=== PATIENT | female | born 1985 | race Caucasian/White ===

== ENCOUNTER 2016-12-06 11:06 | Emergency (ER) | payer OTHER ==
[2016-12-06 11:36] VITALS: BP 123/78
--- NOTE | 2016-12-06 12:01 | UC ---
Dental HPI - HPI Summary HPI Summary: dental pain x 1 week pain and swelling, of left lower molar no fever, no chills, pain with chewing - History of Current Complaint Chief Complaint: UCDentalProblem Stated Complaint: DENTAL ABSCESS Time Seen by Provider: 12/06/16 11:48 Hx Obtained From: Patient Hx Last Menstrual Period: 11/29/16 Onset/Duration: Gradual Onset, Lasting Days - 7, Still Present Severity: Severe Aggravating: Heat, Cold, Chewing Alleviating: Nothing Dental: 1 - brocken molar, + erythem , swelling, tenderness - Allergies/Home Medications Allergies/Adverse Reactions: Allergies Allergy/AdvReac Type Severity Reaction Status Date / Time Codeine AdvReac Abdominal Verified 12/06/16 11:30 Pain Home Medications: Home Medications Amoxicillin CAP* [Amoxicillin 500 MG CAP*] 500 mg PO SEE INSTRUCTIONS 12/06/16 [ History Confirmed 12/06/16] Ibuprofen TAB* [Advil TAB*] 800 mg PO Q6H PRN 12/06/16 [History Confirmed ] PMH/Surg Hx/FS Hx/Imm Hx Previously Healthy: Yes - Surgical History Surgical History: Yes Surgery Procedure, Year, and Place: D&C, 2016; Cholecystectomy, ~2006, [place] - Family History Known Family History: Positive: Diabetes Negative: Cardiac Disease, Hypertension - Social History Alcohol Use: Rare Substance Use Type: None Smoking Status (MU): Light Every Day Tobacco Smoker Type: Cigarettes Amount Used/How Often: <1/2 PPD Length of Time of Smoking/Using Tobacco: Since Age 15 Have You Smoked in the Last Year: Yes - Immunization History Most Recent Influenza Vaccination: August 2016 Review of Systems Constitutional: Negative Skin: Negative Eyes: Negative ENT: Dental Pain Respiratory: Negative Cardiovascular: Negative All Other Systems Reviewed And Are Negative: Yes Physical Exam Triage Information Reviewed: Yes Appearance: Well-Appearing, No Pain Distress, Well-Nourished Vital Signs: Initial Vital Signs Temp 98.4 F 12/06/16 11:28 Pulse 82 12/06/16 11:28 Resp 16 12/06/16 11:28 BP 123/78 12/06/16 11:28 Pulse Ox 98 12/06/16 11:28 Vital Signs Reviewed: Yes Eyes: Positive: Conjunctiva Clear ENT: Positive: Normal ENT inspection, Hearing grossly normal, Pharynx normal, TMs normal Dental: Positive: Percussion Tenderness @ - 17,18,19,, Gross Decay/Caries @ - 17 ,18,19,, Dental Fracture @ - 17,18,19,, Cellulitis @ - 17,18,19, Respiratory: Positive: Chest non-tender, Lungs clear, Normal breath sounds Cardiovascular: Positive: RRR, No Murmur, Pulses Normal Abdomen Description: Positive: Nontender, No Organomegaly, Soft Dental Complaint Course/Dx - Differential Dx/Diagnosis Provider Diagnoses: dental pain Discharge - Discharge Plan Condition: Stable Disposition: HOME Prescriptions: Amoxicillin (*) [Amoxicillin 875 MG (*)] 875 mg PO BID #20 tab Patient Education Materials: Toothache (ED) Referrals: Shannon Raya MD [Primary Care Provider] - 7 Days Additional Instructions: follow up with your dentist
== END 2016-12-06 12:02 | disposition home or self-care (01) ==
LOC: UCCORT 11:06
DX: K08.89 Other specified disorders of teeth and supporting structures (principal); F17.210 Nicotine dependence, cigarettes, uncomplicated
CPT/HCPCS: 99212; G0463

== ENCOUNTER 2017-01-13 16:22 | Emergency (ER) | payer OTHER ==
[2017-01-13 16:42] VITALS: BP 133/81
--- NOTE | 2017-01-13 16:51 | UC ---
UC Dental HPI - HPI Summary HPI Summary: 31 year old female presents with complains of right lower molar abscess. - History of Current Complaint Chief Complaint: UCDentalProblem Stated Complaint: DENTAL Time Seen by Provider: 01/13/17 16:46 Hx Last Menstrual Period: 12/23/16 - Allergies/Home Medications Allergies/Adverse Reactions: Allergies Allergy/AdvReac Type Severity Reaction Status Date / Time Codeine AdvReac Abdominal Verified 01/13/17 16:42 Pain PMH/Surg Hx/FS Hx/Imm Hx - Surgical History Surgical History: Yes Surgery Procedure, Year, and Place: D&C, 2016; Cholecystectomy, ~2006, [place] - Family History Known Family History: Positive: Diabetes Negative: Cardiac Disease, Hypertension - Social History Alcohol Use: Rare Substance Use Type: None Smoking Status (MU): Light Every Day Tobacco Smoker Type: Cigarettes Amount Used/How Often: <1/2 PPD Length of Time of Smoking/Using Tobacco: Since Age 15 Have You Smoked in the Last Year: Yes - Immunization History Most Recent Influenza Vaccination: August 2016 Review of Systems Constitutional: Negative Skin: Negative Eyes: Negative ENT: Dental Pain Respiratory: Negative Cardiovascular: Negative Gastrointestinal: Negative Genitourinary: Negative Motor: Negative Neurovascular: Negative Musculoskeletal: Negative Neurological: Negative Psychological: Negative All Other Systems Reviewed And Are Negative: Yes Physical Exam Triage Information Reviewed: Yes Vital Signs: Initial Vital Signs Temp 36.8 C 01/13/17 16:34 Pulse 104 01/13/17 16:34 Resp 20 01/13/17 16:34 BP 133/81 01/13/17 16:34 Pulse Ox 99 01/13/17 16:34 Eye Exam: Normal ENT Exam: Normal Dental: Positive: Abscess @ Neck exam: Normal Neck: Positive: 1 Respiratory Exam: Normal Cardiovascular Exam: Normal Abdominal Exam: Normal Musculoskeletal Exam: Normal Neurological Exam: Normal Psychological Exam: Normal Skin Exam: Normal Dental Complaint Course/Dx - Differential Dx/Diagnosis Provider Diagnoses: dental abscess Discharge - Discharge Plan Condition: Stable Disposition: HOME Prescriptions: Amoxicillin/Clavulanate TAB* [Augmentin TAB 875*] 875 mg PO BID #14 tab Chlorhexidine MW 0.12% 473ML* [Peridex Mouth Wash 0.12%*] 15 ml MT TID AC #473 btl Fluconazole [Diflucan 150 MG (NF)] 150 mg PO ONCE #1 tab Naproxen [Naproxen DR 500 MG TAB] 500 mg PO BID PC #30 tab Patient Education Materials: Dental Abscess (ED) Referrals: Shannon Raya MD [Primary Care Provider] - If Needed
== END 2017-01-13 16:56 | disposition home or self-care (01) ==
LOC: UCCORT 16:22
DX: K04.7 Periapical abscess without sinus (principal); E11.9 Type 2 diabetes mellitus without complications; Z72.0 Tobacco use
CPT/HCPCS: 99212; G0463

== ENCOUNTER 2017-02-21 15:56 | Emergency (ER) | payer OTHER ==
[2017-02-21 16:32] VITALS: BP 139/91
--- NOTE | 2017-02-21 16:34 | UC ---
UC Dental HPI - HPI Summary HPI Summary: 31 YEAR OLD FEMALE PRESENTS WITH COMPLAINS OF LEFT LOWER DENTAL ABSCESS. - History of Current Complaint Chief Complaint: UCDentalProblem Stated Complaint: ORAL COMPLAINT Time Seen by Provider: 02/21/17 16:32 Hx Obtained From: Patient Hx Last Menstrual Period: 02/13/17 Onset/Duration: Sudden Onset Severity: Moderate Pain Scale Used: 0-10 Numeric - 6 Related History: Swelling - Allergies/Home Medications Allergies/Adverse Reactions: Allergies Allergy/AdvReac Type Severity Reaction Status Date / Time Codeine AdvReac Abdominal Verified 02/21/17 16:27 Pain PMH/Surg Hx/FS Hx/Imm Hx Previously Healthy: Yes - Surgical History Surgical History: Yes Surgery Procedure, Year, and Place: D&C, 2016; Cholecystectomy, ~2006, [place] - Family History Known Family History: Positive: Diabetes Negative: Cardiac Disease, Hypertension - Social History Alcohol Use: Rare Substance Use Type: None Smoking Status (MU): Light Every Day Tobacco Smoker Type: Cigarettes Amount Used/How Often: <1/2 PPD Length of Time of Smoking/Using Tobacco: Since Age 15 Have You Smoked in the Last Year: Yes - Immunization History Most Recent Influenza Vaccination: August 2016 Review of Systems Constitutional: Negative Skin: Negative Eyes: Negative ENT: Dental Pain Respiratory: Negative Cardiovascular: Negative Gastrointestinal: Negative Genitourinary: Negative Motor: Negative Neurovascular: Negative Musculoskeletal: Negative Neurological: Negative Psychological: Negative All Other Systems Reviewed And Are Negative: Yes Physical Exam Triage Information Reviewed: Yes Vital Signs: Initial Vital Signs Temp 37.1 C 02/21/17 16:23 Pulse 79 02/21/17 16:23 Resp 16 02/21/17 16:23 BP 139/91 02/21/17 16:23 Pulse Ox 100 02/21/17 16:23 Eye Exam: Normal ENT Exam: Normal Dental: Positive: Abscess @ Neck exam: Normal Neck: Positive: 1 Respiratory Exam: Normal Cardiovascular Exam: Normal Abdominal Exam: Normal Musculoskeletal Exam: Normal Neurological Exam: Normal Psychological Exam: Normal Skin Exam: Normal Dental Complaint Course/Dx - Differential Dx/Diagnosis Differential Diagnosis/Dx: Dental Abscess Provider Diagnoses: DENTAL ABSCESS Discharge - Discharge Plan Condition: Stable Disposition: HOME Prescriptions: Amoxicillin/Clavulanate TAB* [Augmentin TAB 875*] 875 mg PO BID #20 tab Chlorhexidine MW 0.12% 473ML* [Peridex Mouth Wash 0.12%*] 15 ml PO TID PC #1 btl Fluconazole [Diflucan 150 MG (NF)] 150 mg PO ONCE #1 tab Naproxen [Naprosyn 500 mg] 500 mg PO BID #30 tab Patient Education Materials: Toothache (ED) Referrals: Shanonn Raya MD [Primary Care Provider] - If Needed
== END 2017-02-21 16:51 | disposition home or self-care (01) ==
LOC: UCCORT 15:56
DX: K04.7 Periapical abscess without sinus (principal); Z88.5 Allergy status to narcotic agent; F17.210 Nicotine dependence, cigarettes, uncomplicated
CPT/HCPCS: 99212; G0463

== ENCOUNTER 2017-07-31 17:19 | Emergency (ER) | payer OTHER | END 2017-07-31 20:00 | disposition left against medical advice (07) | LOC: UCCORT 17:19 | DX: R05 Cough (principal); R09.89 Other specified symptoms and signs involving the circulatory and respiratory systems; Z53.21 Procedure and treatment not carried out due to patient leaving prior to being seen by health care provider ==

== ENCOUNTER 2017-08-01 09:20 | Emergency (ER) | payer OTHER ==
[2017-08-01 09:58] VITALS: BP 136/88
--- NOTE | 2017-08-01 10:22 | UC ---
Respiratory Complaint HPI - HPI Summary HPI Summary: COUGH X 5 DAYS + CHEST CONGESTION, FEVER, CHILLS, BODY ACHES NO SORE THROAT - History of Current Complaint Chief Complaint: UCRespiratory Stated Complaint: COUGH/STUFFY Time Seen by Provider: 08/01/17 10:03 Hx Obtained From: Patient Hx Last Menstrual Period: 08/01/17 ?: No Onset/Duration: Gradual Onset, Lasting Days - 5, Still Present Timing: Constant Severity Initially: Moderate Severity Currently: Moderate Character: Cough: Nonproductive Aggravating Factors: Deep Breaths Alleviating Factors: Nothing Associated Signs And Symptoms: Positive: Fever, Chills, URI, Nasal Congestion. Negative: Dyspnea, Pleuritic Chest Pain, Wheezing - Allergies/Home Medications Allergies/Adverse Reactions: Allergies Allergy/AdvReac Type Severity Reaction Status Date / Time Codeine AdvReac Abdominal Verified 08/01/17 09:49 Pain Home Medications: Home Medications Chlorpheniramine-Dm [Cough & Cold] 1 tab PO PRN 08/01/17 [History] PMH/Surg Hx/FS Hx/Imm Hx Previously Healthy: Yes - Surgical History Surgical History: Yes Surgery Procedure, Year, and Place: D&C, 2016; Cholecystectomy, ~2006, [place] - Family History Known Family History: Positive: Diabetes Negative: Cardiac Disease, Hypertension - Social History Alcohol Use: Rare Substance Use Type: None Smoking Status (MU): Light Every Day Tobacco Smoker Type: Cigarettes Amount Used/How Often: <1/2 PPD Length of Time of Smoking/Using Tobacco: Since Age 15 Have You Smoked in the Last Year: Yes - Immunization History Most Recent Influenza Vaccination: JUN 2017 Review of Systems Constitutional: Fever, Chills, Fatigue Skin: Negative Eyes: Negative ENT: Nasal Discharge, Sinus Congestion Respiratory: Cough Cardiovascular: Negative Gastrointestinal: Negative Is Patient Immunocompromised?: No All Other Systems Reviewed And Are Negative: Yes Physical Exam Triage Information Reviewed: Yes Appearance: Well-Appearing, No Pain Distress, Well-Nourished Vital Signs: Initial Vital Signs Temp 97.8 F 08/01/17 09:51 Pulse 87 08/01/17 09:51 Resp 18 08/01/17 09:51 BP 136/88 08/01/17 09:51 Pulse Ox 99 08/01/17 09:51 Vital Signs Reviewed: Yes Eyes: Positive: Conjunctiva Clear ENT: Positive: Normal ENT inspection, Hearing grossly normal, Pharynx normal, Nasal congestion, Nasal drainage, TMs normal Neck: Positive: Supple, Nontender, No Lymphadenopathy Respiratory: Positive: Chest non-tender, Lungs clear, Normal breath sounds, No respiratory distress Cardiovascular: Positive: RRR, No Murmur, Pulses Normal Skin Exam: Normal UC Diagnostic Evaluation - Laboratory O2 Sat by Pulse Oximetry: 99 Respiratory Course/Dx - Differential Dx/Diagnosis Provider Diagnoses: ACUTE VIRAL BRONCHITIS Discharge - Discharge Plan Condition: Stable Disposition: HOME Prescriptions: Benzonatate [TESSALON 200 MG CAP] 200 mg PO Q8H #21 cap Patient Education Materials: Acute Bronchitis (ED) Forms: *Work Release Referrals: Shannon Raya MD [Primary Care Provider] - If Needed Additional Instructions: VIRAL BRONCHITIS NO NEED FOR ANTIBIOTICS
== END 2017-08-01 10:24 | disposition home or self-care (01) ==
LOC: UCCORT 09:20
DX: J20.8 Acute bronchitis due to other specified organisms (principal); Z72.0 Tobacco use
CPT/HCPCS: 99212; G0463

== ENCOUNTER 2017-11-21 20:36 | Emergency (ER) | payer OTHER ==
[2017-11-21 20:54] VITALS: BP 135/78
--- NOTE | 2017-11-21 21:10 | UC ---
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 Pt states "back feels tight and radiates across and up back" - History of Current Complaint Chief Complaint: UCBackPain Stated Complaint: BACK PAIN, COUGH Time Seen by Provider: 11/21/17 20:52 Hx Obtained From: Patient Hx Last Menstrual Period: 11/06/17 ?: No Onset/Duration: Gradual Onset, Lasting Hours, Still Present, Worse Since Timing: Constant Severity Initially: Mild Severity Currently: Moderate Pain Intensity: 7 Back Pain: Is Discrete @ Character: Dull, Aching, Spasmodic, Stiffness Aggravating Factor(s): Movement, Lifting, Bending Alleviating Factor(s): Rest, Position Associated Signs And Symptoms: Positive: Negative - Risk Factors AAA Risk Factors: Negative TAD Risk Factors: Negative Cauda Equina Risk Factors: Negative Epidural Abscess Risk Factors: Negative - Allergies/Home Medications Allergies/Adverse Reactions: Allergies Allergy/AdvReac Type Severity Reaction Status Date / Time codeine Allergy Intermediate Abdominal Verified 11/21/17 20:54 Pain Home Medications: Home Medications diPHENhydraMINE PO* [Benadryl PO 25 MG TAB*] 25 mg pe BEDTIME 11/21/17 [History Confirmed 11/21/17] PMH/Surg Hx/FS Hx/Imm Hx Previously Healthy: Yes - Surgical History Surgical History: Yes Surgery Procedure, Year, and Place: D&C, 2016; Cholecystectomy, ~2006, [place] - Family History Known Family History: Positive: Diabetes Negative: Cardiac Disease, Hypertension - Social History Occupation: Employed Full-time Lives: With Family Alcohol Use: Rare Substance Use Type: None Smoking Status (MU): Light Every Day Tobacco Smoker Type: Cigarettes Amount Used/How Often: <1/2 PPD Length of Time of Smoking/Using Tobacco: Since Age 15 Have You Smoked in the Last Year: Yes - Immunization History Most Recent Influenza Vaccination: JUN 2017 Review of Systems Constitutional: Negative Skin: Negative Eyes: Negative ENT: Negative Respiratory: Negative Cardiovascular: Negative Gastrointestinal: Negative Genitourinary: Negative Motor: Negative Neurovascular: Negative Musculoskeletal: Myalgia - low back Neurological: Negative Psychological: Negative Is Patient Immunocompromised?: No All Other Systems Reviewed And Are Negative: Yes Physical Exam Triage Information Reviewed: Yes Appearance: Well-Appearing Vital Signs: Initial Vital Signs Temp 98 F 11/21/17 20:47 Pulse 86 11/21/17 20:47 Resp 18 11/21/17 20:47 BP 135/78 11/21/17 20:47 Pulse Ox 99 11/21/17 20:47 Vital Signs Reviewed: Yes Eye Exam: Normal ENT: Positive: Hearing grossly normal Neck exam: Normal Respiratory: Positive: No respiratory distress Musculoskeletal Exam: Other Musculoskeletal: Positive: ROM Limited @ - low back c/o pain with ROM Neurological Exam: Normal Psychological Exam: Normal Skin Exam: Normal Back Pain Course/Dx - Differential Dx/Diagnosis Differential Diagnosis/HQI/PQRI: Strain Provider Diagnoses: low back strain Discharge - Sign-Out/Discharge Documenting (check all that apply): Discharge/Admit/Transfer - Discharge Plan Condition: Stable Disposition: HOME Prescriptions: Cyclobenzaprine TAB* [Flexeril 10 MG TAB*] 10 mg PO Q8H PRN #15 tab PRN Reason: Pain Patient Education Materials: Low Back Strain (ED), Lower Back Exercises (ED) Forms: *Work Release Referrals: Shannon Raya MD [Primary Care Provider] - If Needed - Billing Disposition and Condition Condition: STABLE Disposition: HOME
== END 2017-11-21 21:21 | disposition home or self-care (01) ==
LOC: UCCORT 20:36
DX: S33.5XXA Sprain of ligaments of lumbar spine, initial encounter (principal); X50.0XXA Overexertion from strenuous movement or load, initial encounter; Y93.89 Activity, other specified; Y92.9 Unspecified place or not applicable; Y99.0 Civilian activity done for income or pay; Z88.5 Allergy status to narcotic agent; F17.210 Nicotine dependence, cigarettes, uncomplicated
CPT/HCPCS: 81003; 84702; 87086; 99212; G0463

== ENCOUNTER 2018-01-11 10:32 | Emergency (ER) | payer OTHER ==
[2018-01-11 10:46] VITALS: BP 133/85
--- NOTE | 2018-01-11 11:44 | UC ---
Back Pain HPI - HPI Summary HPI Summary: Patient reports being in the swimming pool yesterday with her daughter and was bouncing her daughter up and down in the water. Patient now has right mid back pain that seems to travel down into her buttock. Patient describes this as tight does not radiated around flank or into abdomen no urinary tract symptoms. 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 and notes that it is very difficult to do her job as she went in last night at 6 PM and had a great deal of pain in her back, performing a chest care - History of Current Complaint Chief Complaint: UCBackPain Stated Complaint: BACK PAIN Time Seen by Provider: 01/11/18 11:26 Hx Obtained From: Patient Hx Last Menstrual Period: 01/02/18 ?: No Onset/Duration: Sudden Onset, Lasting Days - 1, Still Present Timing: Constant Pain Intensity: 8 Pain Scale Used: 0-10 Numeric Back Pain: Is Discrete @ Character: Aching, Spasmodic, Stiffness Aggravating Factor(s): Movement, Lifting, Bending Alleviating Factor(s): Nothing Associated Signs And Symptoms: Positive: Negative - Allergies/Home Medications Allergies/Adverse Reactions: Allergies Allergy/AdvReac Type Severity Reaction Status Date / Time codeine Allergy Intermediate Abdominal Verified 01/11/18 10:44 Pain Home Medications: Home Medications Ibuprofen TAB* [Motrin TAB* 800 MG] 800 mg PO Q6H PRN 01/11/18 [History Confirmed 01/11/18] PMH/Surg Hx/FS Hx/Imm Hx Previously Healthy: Yes - Surgical History Surgical History: Yes Surgery Procedure, Year, and Place: D&C, 2016; Cholecystectomy, ~2006, [place] - Family History Known Family History: Positive: Diabetes Negative: Cardiac Disease, Hypertension - Social History Occupation: Employed Full-time Lives: With Family Alcohol Use: None Substance Use Type: None Smoking Status (MU): Light Every Day Tobacco Smoker Type: Cigarettes Amount Used/How Often: <1/2 PPD Length of Time of Smoking/Using Tobacco: Since Age 15 Have You Smoked in the Last Year: Yes Cessation Counseling: Patient Advised to Stop - O - Immunization History Most Recent Influenza Vaccination: JUN 2017 Review of Systems Constitutional: Negative Skin: Negative Eyes: Negative ENT: Negative Respiratory: Negative Cardiovascular: Negative Gastrointestinal: Negative Genitourinary: Negative Motor: Negative Neurovascular: Negative Musculoskeletal: Negative, Myalgia - right side of mid-low back Neurological: Negative Psychological: Negative Is Patient Immunocompromised?: No All Other Systems Reviewed And Are Negative: Yes Physical Exam Triage Information Reviewed: Yes Appearance: Well-Appearing, Pain Distress - mild, Obese - She's had a vaginal wall Vital Signs: Initial Vital Signs Temp 97.9 F 01/11/18 10:41 Pulse 94 01/11/18 10:41 Resp 16 01/11/18 10:41 BP 133/85 01/11/18 10:41 Pulse Ox 100 01/11/18 10:41 Vital Signs Reviewed: Yes Eye Exam: Normal Eyes: Positive: Conjunctiva Clear ENT Exam: Normal ENT: Positive: Normal ENT inspection, Hearing grossly normal. Negative: Nasal congestion, Trismus, Muffled voice, Hoarse voice Dental Exam: Normal Neck exam: Normal Neck: Positive: Supple, Nontender Respiratory Exam: Normal Respiratory: Positive: Chest non-tender, Normal breath sounds, No respiratory distress, No accessory muscle use Cardiovascular Exam: Normal Cardiovascular: Positive: RRR, Pulses Normal, Brisk Capillary Refill Abdominal Exam: Normal Abdomen Description: Positive: Soft. Negative: CVA Tenderness (R), CVA Tenderness (L) Musculoskeletal Exam: Normal Musculoskeletal: Positive: Strength Intact, ROM Intact, No Edema Neurological Exam: Normal Neurological: Positive: Alert, Muscle Tone Normal Psychological Exam: Normal Skin Exam: Normal Back Pain Course/Dx - Course Course Of Treatment: lidoderm patches, flexeril, tylenol/ibuprofen work note for 1 vivek, back exercises and physical therapy referral made - Differential Dx/Diagnosis Provider Diagnoses: low back strain, nicotine dependant Discharge - Sign-Out/Discharge Documenting (check all that apply): Discharge/Admit/Transfer - Discharge Plan Condition: Stable Disposition: HOME Prescriptions: Cyclobenzaprine TAB* [Flexeril 10 MG TAB*] 10 mg PO TID PRN #15 tab PRN Reason: muscle spasm Lidocaine PATCH 5%* [Lidoderm 5% Patch*] 1 patch TRANSDERM DAILY #15 patch Patient Education Materials: Low Back Strain (ED), Acute Low Back Pain (ED), Core Strengthening Exercises (GEN), Lower Back Exercises (ED) Forms: *Work Release Referrals: Shannon Raya MD [Primary Care Provider] - 1 Week - Billing Disposition and Condition Condition: STABLE Disposition: Home
== END 2018-01-11 11:55 | disposition home or self-care (01) ==
LOC: UCCORT 10:32
DX: M54.5 Low back pain (principal); X50.0XXA Overexertion from strenuous movement or load, initial encounter; Y93.89 Activity, other specified; Y92.34 Swimming pool (public) as the place of occurrence of the external cause; Z88.5 Allergy status to narcotic agent; F17.210 Nicotine dependence, cigarettes, uncomplicated
CPT/HCPCS: 99212; G0463

== ENCOUNTER 2018-04-26 19:01 | Emergency (ER) | payer OTHER ==
[2018-04-26 19:33] VITALS: BP 137/93
--- NOTE | 2018-04-26 20:04 | UC ---
Respiratory Complaint HPI - HPI Summary HPI Summary: Pt c/o of persistent cough that began "few days ago" and has worsened over last few hours Pt states that she was coughing and began to "gag and choke then vomit" this evening then had sudden onset of diarrhea X 1. - History of Current Complaint Chief Complaint: UCRespiratory Stated Complaint: COUGH/DIARREAH Time Seen by Provider: 04/26/18 19:55 Hx Obtained From: Patient Hx Last Menstrual Period: 04/20/18 ?: No Onset/Duration: Sudden Onset, Lasting Days, Worse Since Timing: Intermittent Episodes Severity Initially: Mild Severity Currently: Mild Pain Intensity: 2 Character: Cough: Nonproductive Aggravating Factors: Exertion, Deep Breaths, Recumbent Position Associated Signs And Symptoms: Positive: Nasal Congestion - Risk Factors Pulmonary Embolism Risk Factors: Negative Cardiac Risk Factors: Smoking Tuberculosis Risk Factors: Smoking - Allergies/Home Medications Allergies/Adverse Reactions: Allergies Allergy/AdvReac Type Severity Reaction Status Date / Time codeine Allergy Intermediate Abdominal Verified 04/26/18 19:34 Pain PMH/Surg Hx/FS Hx/Imm Hx Previously Healthy: Yes - Surgical History Surgical History: Yes Surgery Procedure, Year, and Place: D&C, 2016; Cholecystectomy, ~2006, [place] - Family History Known Family History: Positive: Diabetes Negative: Cardiac Disease, Hypertension - Social History Occupation: Employed Full-time Lives: With Family Alcohol Use: None Substance Use Type: None Smoking Status (MU): Light Every Day Tobacco Smoker Type: Cigarettes Amount Used/How Often: <1/2 PPD Length of Time of Smoking/Using Tobacco: Since Age 15 Have You Smoked in the Last Year: Yes - Immunization History Most Recent Influenza Vaccination: JUN 2017 Review of Systems Constitutional: Chills Skin: Negative Eyes: Negative ENT: Negative Respiratory: Cough Cardiovascular: Negative Gastrointestinal: Vomiting, Diarrhea Genitourinary: Negative Motor: Negative Neurovascular: Negative Musculoskeletal: Negative Neurological: Negative Psychological: Negative Is Patient Immunocompromised?: No All Other Systems Reviewed And Are Negative: Yes Physical Exam Triage Information Reviewed: Yes Appearance: Ill-Appearing Vital Signs: Initial Vital Signs Temp 98.4 F 04/26/18 19:28 Pulse 105 04/26/18 19:28 Resp 16 04/26/18 19:28 BP 137/93 04/26/18 19:28 Pulse Ox 98 04/26/18 19:28 Vital Signs Reviewed: Yes Eye Exam: Normal ENT Exam: Other ENT: Positive: Nasal congestion Dental Exam: Normal Neck exam: Normal Respiratory Exam: Normal Cardiovascular Exam: Normal Abdominal Exam: Normal Musculoskeletal Exam: Normal Neurological Exam: Normal Psychological Exam: Normal Skin Exam: Normal UC Diagnostic Evaluation - Laboratory O2 Sat by Pulse Oximetry: 98 Respiratory Course/Dx - Differential Dx/Diagnosis Differential Diagnosis/HQI/PQRI: Bronchitis Provider Diagnoses: viral syndrome Discharge - Sign-Out/Discharge Documenting (check all that apply): Patient Departure All imaging exams completed and their final reports reviewed: No Studies - Discharge Plan Condition: Stable Disposition: HOME Prescriptions: Cetirizine* [ZyrTEC 10 MG TAB*] 10 mg PO DAILY #10 tab predniSONE TAB* [Deltasone 20 MG TAB*] 20 mg PO DAILY #4 tab Patient Education Materials: Acute Cough (ED) Forms: *Work Release Referrals: Rachel Bills NP [Primary Care Provider] - 5 Days - Billing Disposition and Condition Condition: STABLE Disposition: Home
== END 2018-04-26 20:12 | disposition home or self-care (01) ==
LOC: UCCORT 19:01
DX: B34.9 Viral infection, unspecified (principal); F17.210 Nicotine dependence, cigarettes, uncomplicated; Z88.5 Allergy status to narcotic agent
CPT/HCPCS: 99212; G0463